=== PATIENT | male | born 1965 | race Caucasian/White ===

== ENCOUNTER 2023-04-04 14:44 | Outpatient (OUT) | payer BC, SELFPAY ==
--- NOTE | 2023-04-04 | XR_ITS ---
[address] [address] Patient Name: SANTINO NIETO MRN: [id number] date: 1965 Sex: M Assigned Patient Location: Current Patient Location: Accession/Order Number: [id number] Exam Date: 04/04/2023 14:46 Report Date: 04/04/2023 15:18 At the request of: KELSI PULIDO Procedure: XR ankle LEE min 3V EXAMINATION: XR ankle LEE min 3V HISTORY: BILATERAL ANKLE PAIN COMPARISON: 04/12/2022 FINDINGS: RIGHT FINDINGS: BONES: Right tibiotalar arthroplasty . No acute fracture, dislocation or mechanical failure. Posterior calcaneal osteotomy transfixed with a single screw. Surgical jaqueline along the base of the first metatarsal with fracture of one of the jaqueline, stable SOFT TISSUES: Negative. No visible soft tissue swelling. OTHER: Negative. LEFT FINDINGS: BONES: Severe degenerative change with [id number] articulation of the tibiotalar joint medially and widening of the joint space laterally. Significant bony remodeling SOFT TISSUES: Negative. No visible soft tissue swelling. OTHER: Negative. XR/XR ankle LEE min 3V IMPRESSION: RIGHT CONCLUSION: Stable tibiotalar arthroplasty LEFT CONCLUSION: Stable severe degenerative changes Electronically authenticated by: ESTUARDO MAZA Date: 04/04/2023 15:18
== END 2023-04-04 14:45 | disposition home or self-care (01) ==
LOC: EC 14:45
PROVIDERS: Visit Provider Podiatrist Foot & Ankle Surgery
DX: M25.572 Pain in left ankle and joints of left foot (principal); M25.571 Pain in right ankle and joints of right foot; Z98.890 Other specified postprocedural states
CPT/HCPCS: 73610

== ENCOUNTER 2024-04-09 14:28 | Outpatient (OUT) | payer BC, SELFPAY ==
--- NOTE | 2024-04-09 14:30 | XR_ITS ---
The [address] [address] Patient Name: SANTINO NIETO MRN: [id number] date: 1965 Sex: M Assigned Patient Location: [facility] Current Patient Location: [facility] Accession/Order Number: [id number] Exam Date: 04/09/2024 23:36 Report Date: 04/09/2024 23:37 At the request of: KELSI PULIDO DPChely Procedure: XR ankle RT min 3V RIGHT ANKLE - 3 views CLINICAL HISTORY: Follow-up ankle surgery COMPARISON: Ankle series 04/04/2023 FINDINGS: Ankle prostate is grossly unchanged from the prior study. Screw fixation involving the calcaneus similar to the prior study. No acute bony process. XR/XR ankle RT min 3V IMPRESSION: NO HARDWARE COMPLICATION. NO SIGNIFICANT CHANGE IN ALIGNMENT OF THE ANKLE PROSTHESIS. Impression dictated by: Julio Ferreira Jr., D.O.04/09/2024 11:37 PM Dictation Location: mimoOnSEATTLE VA MEDICAL CENTERGüvenRehberi Electronically authenticated by: [id number] Y Date: 04/09/2024 23:37
== END 2024-04-09 14:29 | disposition home or self-care (01) ==
LOC: RAD 14:28
PROVIDERS: Visit Provider Podiatrist Foot & Ankle Surgery
DX: M25.571 Pain in right ankle and joints of right foot (principal); Z96.661 Presence of right artificial ankle joint
CPT/HCPCS: 73610